=== PATIENT | female | born 1965 | race American Indian/Alaskan Native ===

== ENCOUNTER 2017-02-28 06:10 | Emergency (ER) | payer MEDICARE ==
[2017-02-28 06:24] VITALS: BP 118/74
[2017-02-28] MEDS ORDERED: TORADOL IM ONE (08:19)
--- NOTE | 2017-02-28 08:25 | Emergency Department Report ---
ED Back Pain/Injury HPI - General Chief Complaint: Neck Pain/Injury Stated Complaint: BODY PAIN Time Seen by Provider: 02/28/17 08:03 Source: EMS Limitations: No Limitations - History of Present Illness Initial Comments: Pt states she has pain all over. Denies any injuries. States pain in low back, neck, both legs. Denies numbness, weakness, fevers, bowel/bladder dysfunction, IVDU. Reports hx of fibromyalgia. MD Complaint: back pain Onset/Timin -: days(s) Similar Symptoms Previously: Yes Place: home Radiation: left leg, right leg Severity: moderate Severity scale (0 -10): 6 Quality: aching Consistency: constant Improves With: supine Worsens With: movement Context: unknown Associated Symptoms: denies: weakness, chest pain, numbness, difficulty walking , cough, difficulty urinating, diaphoresis, incontinence, fever/chills, headaches, abdominal pain, nausea/vomiting, seizure, shortness of breath, syncope - Related Data Previous Rx's Medication Instructions Recorded Last Taken Type Cyclobenzaprine [Flexeril] 10 mg PO TID PRN #15 tablet 02/28/17 Unknown Rx Naproxen [Naprosyn] 500 mg PO BID #20 tablet 02/28/17 Unknown Rx Allergies Allergy/AdvReac Type Severity Reaction Status Date / Time acetaminophen [From Percocet] Allergy Itching Verified 02/28/17 06:28 oxycodone [From Percocet] Allergy Itching Verified 02/28/17 06:28 ED Review of Systems ROS: Stated complaint: BODY PAIN Other details as noted in HPI Comment: All other systems reviewed and negative Constitutional: denies: chills, fever Eyes: denies: eye pain, eye discharge, vision change ENT: denies: ear pain, throat pain Respiratory: denies: cough, shortness of breath, wheezing Cardiovascular: denies: chest pain, palpitations Endocrine: no symptoms reported Gastrointestinal: denies: abdominal pain, nausea, diarrhea Genitourinary: denies: urgency, dysuria, discharge Musculoskeletal: as per HPI, back pain. denies: joint swelling, arthralgia Skin: denies: rash, lesions Neurological: denies: headache, weakness, paresthesias Psychiatric: denies: anxiety, depression Hematological/Lymphatic: denies: easy bleeding, easy bruising ED Past Medical Hx - Past Medical History Fibromyalgia,Manic depression bipolar ED Back Pain Physical Exam - Exam General: Vital signs noted. No distress. Alert and acting appropriately. C spine without tenderness; ROM normal. Heart RRR, lungs CTAB. Abdomen SNTND. CMS intact. Back/Abdomen: Yes Perilumbar Tenderness, Yes Straight Leg Raise Pain, No Abdominal Tenderness, No Perithoracic Tenderness, No Sacroiliac Tenderness, No Flank Tenderness Neuro: Yes Normal Sensation, Yes Normal DTR's, Yes Normal Gait, No Motor Weakness ED Course Vital Signs 02/28/17 02/28/17 06:15 06:24 Temperature 97.8 F 97.8 F Pulse Rate 84 83 Respiratory 18 17 Rate Blood Pressure 118/74 118/74 O2 Sat by Pulse 97 97 Oximetry - Reevaluation(s) Reevaluation #1: 02/28/17 08:23 Pt is in NAD and stable for d/c. ED Medical Decision Making - Medical Decision Making Pt presents with body aches without injury. Exam suggestive of sciatic pain. VSS. No red flag s/sx. Follow up with PCP in 3-5 days. - Differential Diagnosis sciatica, drug seeking, fibromyalgia Critical care attestation.: If time is entered above; I have spent that time in minutes in the direct care of this critically ill patient, excluding procedure time. ED Disposition Clinical Impression: Low back pain with sciatica Qualifiers: Chronicity: acute Back pain laterality: bilateral Sciatica laterality: bilateral sciatica Qualified Code(s): M54.42 - Lumbago with sciatica, left side ; M54.41 - Lumbago with sciatica, right side; M54.41 - Lumbago with sciatica, right side Disposition: TO HOME OR SELFCARE Is pt being admited?: No Does the pt Need Aspirin: No Condition: Good Instructions: Sciatica (ED) Prescriptions: Cyclobenzaprine [Flexeril] 10 mg PO TID PRN #15 tablet PRN Reason: Muscle Spasm Naproxen [Naprosyn] 500 mg PO BID #20 tablet Referrals: PRIMARY CARE, [Primary Care Provider] - 3-5 Days TIFFANY NIELSEN MD [Staff Physician] - 3-5 Days Time of Disposition: 08:25
== END 2017-02-28 08:39 | disposition home or self-care (01) ==
LOC: ED 06:10
DX: M54.42 Lumbago with sciatica, left side (principal); M54.41 Lumbago with sciatica, right side; Z88.6 Allergy status to analgesic agent; Z88.8 Allergy status to other drugs, medicaments and biological substances; F31.9 Bipolar disorder, unspecified
CPT/HCPCS: 96372; 99283; J1885